=== PATIENT | female | born 1960 | race Caucasian/White ===

== ENCOUNTER 2016-09-30 08:32 | Emergency (ER) | payer OTHER ==
[~2016-09-30] VITALS: Ht 170.2 cm; Wt 85.0 kg
[~2016-09-30 08:32] MED LIST: BIOT5000 PO; GABA100C4 PO; MULT1TAB46; PROBCAP4 PO; TRAM100T19 PO
[2016-09-30 08:35] VITALS: BP 158/80; PULSE 63; RESP 15; TEMP 98; O2SAT 99
--- NOTE | 2016-09-30 09:10 | PD ---
HPI Chief Complaint: Complaint Time Seen by Provider: 08:39 Travel History International Travel<30 days: No Contact w/Intl Traveler<30days: No Traveled to known affect area: No History of Present Illness HPI The patient is a 55-year-old female who presents emergency department for pelvic pain. The patient has a history of bladder prolapse with previous surgery by her manager video, Dr. Mendoza. The patient states she was seen by Dr. Mendoza a months ago and advised she may need further surgical intervention for return of her bladder prolapse. However, the patient did not want any surgical intervention at that time. The patient notes her last several days she 's had some sharp, intermittent episodes of pelvic pain located lower aspect of her abdomen, which she attributed to bladder prolapse. She denies any dysuria, frequency, urgency, or hematuria. The pain is sharp, occasionally worse with standing upright, and occasionally alleviated with sitting. The patient has a previous history of appendectomy and hysterectomy for her bladder prolapse. The patient denies any vaginal discharge or bleeding. The patient denies any nausea, vomiting, diarrhea, or change in bowel habits. Symptoms are moderate, occasionally exacerbated by standing upright and alleviated with sitting. PFSH Past Medical History Heart Rhythm Problems: Yes (PALPITATIONS- HAS SEEN DR. SOLO) Cancer: No Cardiovascular Problems: No Diabetes: No Diminished Hearing: No Endocrine: No Genitourinary: No Hepatitis: No Hiatal Hernia: No Immune Disorder: No Musculoskeletal: Yes (ARTHRITIS L KNEE AND R HIP WITH FALL IN SEPTEMBER 2014) Neurologic: No Psychiatric: Yes (CLAUSTROPHOBIC) Reproductive: No Respiratory: No Immunizations Current: Yes Pneumonia: Yes Thyroid Disease: No Menopausal: Yes : 13 Para: 3 Miscarriage: 10 Dilation and Curettage (D&C): Yes (X 14) Past Surgical History Abdominal Surgery: Yes (HYSTEROSCOPY,LAPAROSCOPY, APPY) AICD: No Appendectomy: Yes Section: Yes Gynecologic Surgery: Yes (HYSTEROCOPY, LAPAROSCOPY, UTERINE ABLATION AUG 2011, MULT D AND C) Hysterectomy: Yes Joint Replacement: No Oral Surgery: Yes (T+A) Pacemaker: No Tonsillectomy: Yes (w-adenoidectomy) Other Surgery: Yes (D&C X 12.) Social History Alcohol Use: Yes (OccasionaL) Tobacco Use: No Substance Use: No Allergies-Medications (Allergen,Severity, Reaction): Coded Allergies: Bee Sting (Unverified Allergy, Severe, Anaphylaxis, 03/05/15) Wasp (Unverified Allergy, Severe, Anaphylaxis, 03/05/15) Reported Meds & Prescriptions Reported Meds & Active Scripts Active Review of Systems Except as stated in HPI: all other systems reviewed are Neg General / Constitutional: No: Fever Cardiovascular: No: Chest Pain or Discomfort Respiratory: No: Shortness of Breath Gastrointestinal: Positive: Abdominal Pain, No: Nausea, Vomiting, Diarrhea Genitourinary: Positive: Pelvic Pain, Other, No: Urgency, Frequency, Dysuria Physical Exam Narrative GENERAL: Awake, alert, pleasant 55-year-old female who appears her stated age and is in no acute respiratory distress. SKIN: Warm and dry. HEAD: Atraumatic. Normocephalic. EYES: No injection or drainage. ENT: No nasal bleeding or discharge. Mucous membranes pink and moist. NECK: Trachea midline. No JVD. GASTROINTESTINAL: Abdomen soft, non-tender, nondistended. Minimal tenderness suprapubic and right lower quadrant. Pelvic: The exam was performed in the presence of a female nurse. External examination reveals no obvious prolapse, inspection of the introitus reveals small prolapse within the vaginal vault. MUSCULOSKELETAL: No obvious deformities. No clubbing. No cyanosis. No edema. NEUROLOGICAL: Awake and alert. No obvious cranial nerve deficits. Motor grossly within normal limits. Normal speech. PSYCHIATRIC: Appropriate mood and affect; insight and judgment normal. Data Data Last Documented VS Vital Signs Date Time Temp Pulse Resp B/P Pulse Ox O2 Delivery O2 Flow Rate FiO2 09/30/16 09:15 18 98 Room Air 09/30/16 09:15 78 09/30/16 08:35 98.0 158/80 Orders Complete Blood Count With Diff (09/30/16 09:03) Comprehensive Metabolic Panel (09/30/16 09:03) Lipase (09/30/16 09:03) Urinalysis - C+S If Indicated (09/30/16 09:03) Ct Abd/Pel W/O Iv Contrast (09/30/16 09:03) Iv Access Insert/Monitor (09/30/16 09:03) Ecg Monitoring (09/30/16 09:03) Oximetry (09/30/16 09:03) Sodium Chloride 0.9% Flush (Ns Flush) (09/30/16 09:15) Ketorolac Inj (Toradol Inj) (09/30/16 09:15) Labs Laboratory Tests Test 09/30/16 09/30/16 09:04 09:08 White Blood Count 5.1 TH/MM3 Red Blood Count 4.56 MIL/MM3 Hemoglobin 13.8 GM/DL Hematocrit 40.3 % Mean Corpuscular Volume 88.4 FL Mean Corpuscular Hemoglobin 30.2 PG Mean Corpuscular Hemoglobin 34.2 % Concent Red Cell Distribution Width 13.7 % Platelet Count 218 TH/MM3 Mean Platelet Volume 7.7 FL Neutrophils (%) (Auto) 56.9 % Lymphocytes (%) (Auto) 32.5 % Monocytes (%) (Auto) 6.4 % Eosinophils (%) (Auto) 3.2 % Basophils (%) (Auto) 1.0 % Neutrophils # (Auto) 2.9 TH/MM3 Lymphocytes # (Auto) 1.7 TH/MM3 Monocytes # (Auto) 0.3 TH/MM3 Eosinophils # (Auto) 0.2 TH/MM3 Basophils # (Auto) 0.0 TH/MM3 CBC Comment DIFF FINAL Differential Comment Sodium Level 141 MEQ/L Potassium Level 4.3 MEQ/L Chloride Level 105 MEQ/L Carbon Dioxide Level 29.8 MEQ/L Anion Gap 6 MEQ/L Blood Urea Nitrogen 17 MG/DL Creatinine 0.80 MG/DL Estimat Glomerular Filtration 75 ML/MIN Rate Random Glucose 90 MG/DL Calcium Level 8.8 MG/DL Total Bilirubin 0.7 MG/DL Aspartate Amino Transf 17 U/L (AST/SGOT) Alanine Aminotransferase 27 U/L (ALT/SGPT) Alkaline Phosphatase 59 U/L Total Protein 7.7 GM/DL Albumin 4.2 GM/DL Lipase 364 U/L Urine Color LIGHT-YELLOW Urine Turbidity CLEAR Urine pH 6.5 Urine Specific [place] 1.005 Urine Protein NEG mg/dL Urine Glucose (UA) NEG mg/dL Urine Ketones NEG mg/dL Urine Occult Blood NEG Urine Nitrite NEG Urine Bilirubin NEG Urine Urobilinogen LESS THAN 2.0 MG/DL Urine Leukocyte Esterase NEG Urine RBC LESS THAN 1 /hpf Urine Squamous Epithelial <1 /hpf Cells Microscopic Urinalysis Comment CULT NOT INDICATED MDM Medical Decision Making Medical Screen Exam Complete: Yes Emergency Medical Condition: Yes Interpretation(s) Laboratory Tests Test 09/30/16 09/30/16 09:04 09:08 White Blood Count 5.1 TH/MM3 Red Blood Count 4.56 MIL/MM3 Hemoglobin 13.8 GM/DL Hematocrit 40.3 % Mean Corpuscular Volume 88.4 FL Mean Corpuscular Hemoglobin 30.2 PG Mean Corpuscular Hemoglobin 34.2 % Concent Red Cell Distribution Width 13.7 % Platelet Count 218 TH/MM3 Mean Platelet Volume 7.7 FL Neutrophils (%) (Auto) 56.9 % Lymphocytes (%) (Auto) 32.5 % Monocytes (%) (Auto) 6.4 % Eosinophils (%) (Auto) 3.2 % Basophils (%) (Auto) 1.0 % Neutrophils # (Auto) 2.9 TH/MM3 Lymphocytes # (Auto) 1.7 TH/MM3 Monocytes # (Auto) 0.3 TH/MM3 Eosinophils # (Auto) 0.2 TH/MM3 Basophils # (Auto) 0.0 TH/MM3 CBC Comment DIFF FINAL Differential Comment Sodium Level 141 MEQ/L Potassium Level 4.3 MEQ/L Chloride Level 105 MEQ/L Carbon Dioxide Level 29.8 MEQ/L Anion Gap 6 MEQ/L Blood Urea Nitrogen 17 MG/DL Creatinine 0.80 MG/DL Estimat Glomerular Filtration 75 ML/MIN Rate Random Glucose 90 MG/DL Calcium Level 8.8 MG/DL Total Bilirubin 0.7 MG/DL Aspartate Amino Transf 17 U/L (AST/SGOT) Alanine Aminotransferase 27 U/L (ALT/SGPT) Alkaline Phosphatase 59 U/L Total Protein 7.7 GM/DL Albumin 4.2 GM/DL Lipase 364 U/L Urine Color LIGHT-YELLOW Urine Turbidity CLEAR Urine pH 6.5 Urine Specific [place] 1.005 Urine Protein NEG mg/dL Urine Glucose (UA) NEG mg/dL Urine Ketones NEG mg/dL Urine Occult Blood NEG Urine Nitrite NEG Urine Bilirubin NEG Urine Urobilinogen LESS THAN 2.0 MG/DL Urine Leukocyte Esterase NEG Urine RBC LESS THAN 1 /hpf Urine Squamous Epithelial <1 /hpf Cells Microscopic Urinalysis Comment CULT NOT INDICATED Differential Diagnosis Differential diagnosis includes bladder prolapse, diverticulitis, appendicitis, nephrolithiasis, UTI, cystitis, vaginitis. Narrative Course IV was established, labs are drawn and sent, and the patient was placed on cardiac telemetry monitoring and continuous pulse oximetry monitoring. The patient was administered Toradol 30 mg intravenously. UA was sent to lab. CT the abdomen and pelvis was ordered to rule out nephrolithiasis and diverticulitis. UA is negative for infection. CBC and CMP are unremarkable. CT of the abdomen and pelvis is unremarkable, no evidence of nephrolithiasis or diverticulitis. The patient does complain of "pressure and pulling "with certain activities that may be related to her bladder prolapse. The patient is advised to follow-up with her gynecologic surgery. I will prescribe pain medication as needed. Diagnosis Primary Impression: Abdominal pain Qualified Code: R10.30 - Lower abdominal pain Additional Impression: Female bladder prolapse Patient Instructions: General Instructions Additional Instructions: Please provide the patient a copy of her labs and CT at discharge. Follow-up with your gynecologic surgeon, Dr. Mendoza. Pain medications as directed. No driving or drinking on pain medications. Return if symptoms worsen or progress. Scripts Hydrocodone-Acetaminophen (Loving)5-325 mg Tab1 Tab PO Q6H PRN (PAIN) #15 TAB Ref 0 Prov:Bam Gibbs MD 09/30/16 Ibuprofen 600 Mg Tgt320 Mg PO Q6H PRN (Pain/Inflammation) #20 TAB Ref 0 Prov:Bam Gibbs MD 09/30/16 Condition: Stable Bam Gibbs MD Sep 30, 2016 09:09
[2016-09-30 09:15] VITALS: RESP 18; O2SAT 98
[2016-09-30] MEDS ORDERED: SODIUM CHLORIDE 0.9% FLUSH 5 ML FLUSH IVF PRN (09:15)
[2016-09-30] MEDS ORDERED: KETOROLAC TROMETHAMINE 30 MG/ML (IVP) VIAL IVP ONE (09:15)
[2016-09-30 09:23] LABS: AUTOMATED NEUTROPHIL # 2.9 TH/MM3 (1.8-7.7); EOSINOPHIL # 0.2 TH/MM3 (0-0.4); EOSINOPHIL % 3.2 % (0.0-4.0); HEMATOCRIT 40.3 % (35.0-46.0); HEMO FLAGS DIFF FINAL; LYMPH % 32.5 % (9.0-44.0); LYMPHOCYTE # 1.7 TH/MM3 (1.0-4.8); MEAN CELL VOLUME 88.4 FL (80.0-100.0); MEAN CORPUSCULAR HEMOGLOBIN 30.2 PG (27.0-34.0); MEAN CORPUSCULAR HGB CONC 34.2 % (32.0-36.0); MONO % 6.4 % (0.0-8.0); NEUT % 56.9 % (16.0-70.0); PLATELET COUNT 218 TH/MM3 (150-450); RED BLOOD COUNT 4.56 MIL/MM3 (4.00-5.30); RED CELL DISTRIBUTION WIDTH 13.7 % (11.6-17.2); WHITE BLOOD COUNT 5.1 TH/MM3 (4.0-11.0)
[2016-09-30 09:32] LABS: BLOOD, URINE NEG (NEG); GLUCOSE,URINE NEG (NEG); KETONE, URINE NEG (NEG); NITRITE,URINE NEG (NEG); PH, URINE 6.5 (5.0-8.5); SQUAMOUS EPITHELIAL CELL URINE <1 /hpf (0-5); URINE COLOR LIGHT-YELLOW (YELLW/STRAW)
[2016-09-30 09:35] LABS: COMMENT (UR) CULT NOT INDICATED; CULTURE IF INDICATED CULT NOT INDICATED
[2016-09-30 09:39] LABS: ANION GAP 6 MEQ/L (5-15); AST (GOT) 17 U/L (15-37); BICARBONATE 29.8 MEQ/L (21.0-32.0); BLOOD UREA NITROGEN 17 MG/DL (7-18); CHLORIDE 105 MEQ/L (98-107); GLOMERULAR FILTRATION RATE 75 ML/MIN (>89); POTASSIUM 4.3 MEQ/L (3.5-5.1); SODIUM (NA) 141 MEQ/L (136-145)
[2016-09-30 09:42] LABS: ALKALINE PHOSPHATASE 59 U/L (45-117); ALT (GPT) 27 U/L (10-53); TOTAL BILIRUBIN ADULT 0.7 MG/DL (0.2-1.0)
--- NOTE | 2016-09-30 10:12 | RADRPT ---
EXAM DATE/TIME: 09/30/2016 09:23 [facility] COMPARISON: CT ABDOMEN & PELVIS W/O CONTRAST, August 09, 2014, 11:31. INDICATIONS : Lower pelvic pain for several weeks ORAL CONTRAST: No oral contrast ingested. RADIATION DOSE: 15.02 CTDIvol (mGy) MEDICAL HISTORY : Cardiovascular disease. SURGICAL HISTORY : Hysterectomy. Appendectomy. section.bladder prolapse repair ENCOUNTER: Initial ACUITY: 2 weeks PAIN SCALE: 5/10 LOCATION: lower quadrant TECHNIQUE: Volumetric scanning of the abdomen and pelvis was performed. Using automated exposure control and ad justment of the mA and/or kV according to patient size, radiation dose was kept as low as reasonably achievable to obtain optimal diagnostic quality images. FINDINGS: LOWER LUNGS: The visualized lower lungs are clear. LIVER: Homogeneous density without lesion. There is no dilation of the biliary tree. No calcified gallston es. SPLEEN: Normal size without lesion. PANCREAS: Within normal limits. KIDNEYS: Normal in size and shape. There is no mass, stone, or hydronephrosis. ADRENAL GLANDS: Within normal limits. VASCULAR: There is no aortic aneurysm. There is mild atherosclerotic disease. BOWEL/MESENTERY: The stomach, small bowel, and colon demonstrate no acute abnormality. There is no free intraperitone al air or fluid. ABDOMINAL WALL: Within normal limits. RETROPERITONEUM: There is no lymphadenopathy. BLADDER: No wall thickening or mass. REPRODUCTIVE: The uterus is absent. INGUINAL: There is no lymphadenopathy or hernia. MUSCULOSKELETAL: There are degenerative changes of the lumbar spine. CONCLUSION: 1. No acute finding is identified within the abdomen or pelvis. 2. Mild atherosclerotic disease. Be Pollack MD on September 30, 2016 at 9:58 Board Certified Radiologist. This report was verified electronically.
[2016-09-30] MEDS ORDERED: IBUP-232 PO (10:53)
[2016-09-30] MEDS ORDERED: NORC5TAB PO (10:53)
[2016-09-30 11:17] VITALS: BP 143/78; TEMP 98.3
== END 2016-09-30 11:10 | disposition home or self-care (01) ==
LOC: NEPE 08:32
DX: N81.10 Cystocele, unspecified (principal); R10.30 Lower abdominal pain, unspecified; R10.2 Pelvic and perineal pain; Z87.448 Personal history of other diseases of urinary system; Z86.79 Personal history of other diseases of the circulatory system; Z87.39 Personal history of other diseases of the musculoskeletal system and connective tissue; Z86.59 Personal history of other mental and behavioral disorders; Z87.01 Personal history of pneumonia (recurrent)
CPT/HCPCS: 74176; 80053; 81001; 83690; 85025; 96374; 99284; J1885

== ENCOUNTER 2017-10-21 06:02 | Emergency (ER) | payer OTHER ==
[~2017-10-21] VITALS: Ht 167.6 cm; Wt 97.1 kg
[~2017-10-21 06:02] MED LIST changes: -BIOT5000 PO; -GABA100C4 PO; +IBUP-232 PO; -MULT1TAB46; +NORC5TAB PO; -PROBCAP4 PO; -TRAM100T19 PO
[2017-10-21 06:08] VITALS: BP 133/71; PULSE 65; RESP 18; TEMP 98.3; O2SAT 97
[2017-10-21] MEDS ORDERED: PRENTAB7 PO (06:13)
[2017-10-21] MEDS ORDERED: AMLO5TAB2 PO (06:13)
[2017-10-21] MEDS ORDERED: MELO15TA20 PO (06:13)
[2017-10-21] MEDS ORDERED: KETOROLAC TROMETHAMINE 30 MG/ML (IVP) VIAL IV PUSH ONE (06:30)
[2017-10-21] MEDS ORDERED: SODIUM CHLOR 0.9% 1000 ML INJ 1,000 ML IV ONE (06:30)
[2017-10-21] MEDS ORDERED: ROBA750T PO (06:34)
--- NOTE | 2017-10-21 06:34 | PD ---
HPI Chief Complaint: Musculoskeletal Complaint Time Seen by Provider: 06:26 Travel History International Travel<30 days: No Contact w/Intl Traveler<30days: No Traveled to known affect area: No History of Present Illness HPI 56-year-old female presents to the emergency department by private transportation in the care of her spouse for evaluation of recurrent bilateral lower extremity muscle cramps and charley horse symptoms. Patient states that for greater than 13 years she has had nighttime charley horse and muscle cramps symptoms affecting both legs. Patient states last evening was most worrisome and most symptomatic. Patient has been seen by her primary care provider numerous times for same complaint and told to take potassium and magnesium supplements she is also been referred to her aircraft inspection record clerk who could not find any evidence of peripheral vascular disease or etiology to explain her lower extremity symptoms. Patient does take lisinopril for high blood pressure and meloxicam for arthritis but does not take any statin medications. Patient denies any recent long distance travel protracted bedrest or surgical procedure. Patient denies any personal history or known family history of clotting disorder. Patient denies chest pain pleuritic chest pain shortness of breath or hemoptysis. Patient's had no injury or fall. Patient rates current discomfort is minor but states throughout the night she has had intermittent severe lower extremity cramping. Patient denies any bladder or bowel dysfunction. Patient denies any saddle anesthesia. Patient states that times pain emanates from her lower back into the buttock and feels as if she has a constant pressure on the buttock and into the lower extremities. Symptoms primarily extending from the buttock to the knees bilaterally with lesser extent calf cramping. No lower extremity swelling erythema pain and no pallor or coolness of the extremities. No report of claudication. 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 Patient does repetitive lifting and carrying of various weight objects but has not had any specific injury or specific low back pain precipitating cramps and patient reports cramps primarily occur at bedtime. PFSH Past Medical History Narrative Medical Hypertension arthritis leg cramps palpitations claustrophobia D&C hysteroscopy hysterectomy appendectomy; occasional alcohol use; nursing notes reviewed Medical History: Denies Significant Hx Heart Rhythm Problems: Yes (PALPITATIONS- HAS SEEN DR. SOLO) Cancer: No Cardiovascular Problems: No Diabetes: No Diminished Hearing: No Endocrine: No Gastrointestinal Disorders: No Genitourinary: No Hepatitis: No Hiatal Hernia: No Hypertension: No Immune Disorder: No Musculoskeletal: Yes (ARTHRITIS L KNEE AND R HIP WITH FALL IN SEPTEMBER 2014) Neurologic: No Psychiatric: Yes (CLAUSTROPHOBIC) Reproductive: No Respiratory: No Immunizations Current: Yes Pneumonia: Yes Thyroid Disease: No ?: Not Menopausal: Yes : 13 Para: 3 Miscarriage: 10 Dilation and Curettage (D&C): Yes (X 14) Past Surgical History Abdominal Surgery: Yes (HYSTEROSCOPY,LAPAROSCOPY, APPY) AICD: No Appendectomy: Yes Section: Yes Gynecologic Surgery: Yes (HYSTEROCOPY, LAPAROSCOPY, UTERINE ABLATION AUG 2011, MULT D AND C) Hysterectomy: Yes Joint Replacement: No Oral Surgery: Yes (T+A) Pacemaker: No Tonsillectomy: Yes (w-adenoidectomy) Other Surgery: Yes (D&C X 12.) Social History Alcohol Use: Yes (OccasionaL) Tobacco Use: No Substance Use: No Allergies-Medications (Allergen,Severity, Reaction): Coded Allergies: bee venom protein (honey bee) (Unverified Allergy, Severe, Anaphylaxis, ) hornet venom (Unverified Allergy, Severe, Anaphylaxis, 10/21/17) Reported Meds & Prescriptions Reported Meds & Active Scripts Active Robaxin (Methocarbamol) 750 Mg Tab 750 Mg PO Q6HR Reported Vitamins Tablet (Pnv No.95/Ferrous Fum/Folic AC) 28 Mg Iron-800 Mcg Tablet 1 Tab PO DAILY Amlodipine (Amlodipine Besylate) 5 Mg Tab 5 Mg PO DAILY Meloxicam 15 Mg Tab 15 Mg PO DAILY Review of Systems Except as stated in HPI: all other systems reviewed are Neg General / Constitutional: No: Fever Eyes: No: Visual changes HENT: No: Headaches, Neck Pain Cardiovascular: No: Chest Pain or Discomfort Respiratory: No: Shortness of Breath, Pleuritic Pain Gastrointestinal: No: Nausea, Vomiting, Abdominal Pain Genitourinary: No: Flank Pain Musculoskeletal: Positive: Myalgias, Arthralgias, Cramping, No: Pain Skin: No Rash Neurologic: No: Weakness, Paresthesia Psychiatric: Positive: Anxiety Hematologic/Lymphatic: No: Lymph Node Enlargement Physical Exam Narrative GENERAL: Well-developed well-nourished female no acute distress or respiratory distress SKIN: Warm and dry. HEAD: Normocephalic. EYES: No scleral icterus. No injection or drainage. NECK: Supple, trachea midline. No JVD or lymphadenopathy. CARDIOVASCULAR: Regular rate and rhythm without murmurs, gallops, or rubs. RESPIRATORY: Breath sounds equal bilaterally. No accessory muscle use. GASTROINTESTINAL: Abdomen soft, non-tender, nondistended. MUSCULOSKELETAL: No cyanosis, or edema. Negative Homans sign negative According dorsalis pedis pulse 2+ to palpation bilaterally capillary refill brisk at less than 2 seconds per digit. BACK: Nontender without obvious deformity. Negative straight leg raising. No CVA tenderness. Data Data Last Documented VS Vital Signs Date Time Temp Pulse Resp B/P (MAP) Pulse Ox O2 Delivery O2 Flow Rate FiO2 10/21/17 06:16 20 10/21/17 06:08 98.3 65 133/71 (91) 97 Orders Orders Complete Blood Count With Diff (10/21/17 06:26) Basic Metabolic Panel (Bmp) (10/21/17 06:26) Magnesium (Mg) (10/21/17 06:26) Creatine Kinase (Cpk) (10/21/17 06:26) Urinalysis - C+S If Indicated (10/21/17 06:26) Ketorolac Inj (Toradol Inj) (10/21/17 06:30) Sodium Chlor 0.9% 1000 Ml Inj (Ns 1000 M (10/21/17 06:30) Labs Laboratory Tests Test 10/21/17 06:35 White Blood Count 3.6 TH/MM3 Red Blood Count 4.29 MIL/MM3 Hemoglobin 12.9 GM/DL Hematocrit 37.3 % Mean Corpuscular Volume 87.0 FL Mean Corpuscular Hemoglobin 30.1 PG Mean Corpuscular Hemoglobin Concent 34.6 % Red Cell Distribution Width 13.4 % Platelet Count 200 TH/MM3 Mean Platelet Volume 7.5 FL Neutrophils (%) (Auto) 53.0 % Lymphocytes (%) (Auto) 33.5 % Monocytes (%) (Auto) 7.3 % Eosinophils (%) (Auto) 5.2 % Basophils (%) (Auto) 1.0 % Neutrophils # (Auto) 1.9 TH/MM3 Lymphocytes # (Auto) 1.2 TH/MM3 Monocytes # (Auto) 0.3 TH/MM3 Eosinophils # (Auto) 0.2 TH/MM3 Basophils # (Auto) 0.0 TH/MM3 CBC Comment DIFF FINAL Differential Comment MDM Medical Decision Making Medical Screen Exam Complete: Yes Emergency Medical Condition: Yes Medical Record Reviewed: Yes Differential Diagnosis Electrolyte disturbance, dehydration, leg cramp, sciatica, lumbar radiculopathy , RLS, thyroid dysfunction Narrative Course IV access obtained specimens collected and sent for resulting; patient administered Toradol 1 dose @ 0700 care signed over to oncsammie STAFFORD for follow-up of pending labs and patient disposition Diagnosis Primary Impression: Nocturnal leg cramps Referrals: Primary Care Physician call for appointment Patient Instructions: General Instructions Additional Instructions: Follow-up with your primary care provider Continue to add potassium and magnesium-containing foods and beverages to dietary intake May use muscle relaxant as prescribed as needed Increase fluid hydration Med/Other Pt SpecificInfo: Prescription(s) given Scripts Methocarbamol (Robaxin) 750 Mg Tab 750 MG PO Q6HR for Muscle Spasm, #12 TAB 0 Refills Prov: Annika Rosenberg MD 10/21/17 Disposition: 01 DISCHARGE HOME Condition: Stable Annika Rosenberg MD Oct 21, 2017 06:34
[2017-10-21 06:47] LABS: AUTOMATED NEUTROPHIL # 1.9 TH/MM3 (1.8-7.7); EOSINOPHIL # 0.2 TH/MM3 (0-0.4); EOSINOPHIL % 5.2 % (0.0-4.0); HEMATOCRIT 37.3 % (35.0-46.0); HEMOGLOBIN 12.9 GM/DL (11.6-15.3); LYMPH % 33.5 % (9.0-44.0); LYMPHOCYTE # 1.2 TH/MM3 (1.0-4.8); MEAN CORPUSCULAR HEMOGLOBIN 30.1 PG (27.0-34.0); MEAN CORPUSCULAR HGB CONC 34.6 % (32.0-36.0); MEAN PLATELET VOLUME 7.5 FL (7.0-11.0); MONO % 7.3 % (0.0-8.0); MONOCYTE # 0.3 TH/MM3 (0-0.9); PLATELET COUNT 200 TH/MM3 (150-450); RED BLOOD COUNT 4.29 MIL/MM3 (4.00-5.30); RED CELL DISTRIBUTION WIDTH 13.4 % (11.6-17.2); WHITE BLOOD COUNT 3.6 TH/MM3 (4.0-11.0)
[2017-10-21 07:14] LABS: BICARBONATE 28.1 MEQ/L (21.0-32.0); MAGNESIUM 2.2 MG/DL (1.5-2.5)
[2017-10-21 07:17] LABS: CREATININE 0.62 MG/DL (0.50-1.00)
[2017-10-21 07:29] LABS: BILIRUBIN, URINE NEG (NEG); GLUCOSE,URINE NEG (NEG); KETONE, URINE NEG (NEG); NITRITE,URINE NEG (NEG); PH, URINE 7.5 (5.0-8.5); URINE LEUKOCYTE ESTERASE TRACE (NEG)
[2017-10-21 07:32] LABS: BLOOD, URINE TRACE (NEG)
[2017-10-21 07:34] LABS: URINE COLOR YELLOW (YELLW/STRAW)
[2017-10-21 07:37] LABS: BACTERIA, URINE RARE /hpf; RBC, URINE 0-3 /hpf (0-3); SQUAMOUS EPITHELIAL CELL URINE 0-5 /hpf (0-5); WBC, URINE 0-2 /hpf (0-5)
--- NOTE | 2017-10-21 07:48 | PD ---
Data Data Last Documented VS Vital Signs Date Time Temp Pulse Resp B/P (MAP) Pulse Ox O2 Delivery O2 Flow Rate FiO2 10/21/17 06:16 20 10/21/17 06:08 98.3 65 133/71 (91) 97 Orders Orders Complete Blood Count With Diff (10/21/17 06:26) Basic Metabolic Panel (Bmp) (10/21/17 06:26) Magnesium (Mg) (10/21/17 06:26) Creatine Kinase (Cpk) (10/21/17 06:26) Urinalysis - C+S If Indicated (10/21/17 06:26) Ketorolac Inj (Toradol Inj) (10/21/17 06:30) Sodium Chlor 0.9% 1000 Ml Inj (Ns 1000 M (10/21/17 06:30) CKMB (10/21/17 06:35) CKMB% (10/21/17 06:35) Ed Discharge Order (10/21/17 07:46) Labs Laboratory Tests Test 10/21/17 06:35 10/21/17 07:25 White Blood Count 3.6 TH/MM3 Red Blood Count 4.29 MIL/MM3 Hemoglobin 12.9 GM/DL Hematocrit 37.3 % Mean Corpuscular Volume 87.0 FL Mean Corpuscular Hemoglobin 30.1 PG Mean Corpuscular Hemoglobin Concent 34.6 % Red Cell Distribution Width 13.4 % Platelet Count 200 TH/MM3 Mean Platelet Volume 7.5 FL Neutrophils (%) (Auto) 53.0 % Lymphocytes (%) (Auto) 33.5 % Monocytes (%) (Auto) 7.3 % Eosinophils (%) (Auto) 5.2 % Basophils (%) (Auto) 1.0 % Neutrophils # (Auto) 1.9 TH/MM3 Lymphocytes # (Auto) 1.2 TH/MM3 Monocytes # (Auto) 0.3 TH/MM3 Eosinophils # (Auto) 0.2 TH/MM3 Basophils # (Auto) 0.0 TH/MM3 CBC Comment DIFF FINAL Differential Comment Blood Urea Nitrogen 18 MG/DL Creatinine 0.62 MG/DL Random Glucose 93 MG/DL Calcium Level 9.0 MG/DL Magnesium Level 2.2 MG/DL Sodium Level 140 MEQ/L Potassium Level 4.1 MEQ/L Chloride Level 107 MEQ/L Carbon Dioxide Level 28.1 MEQ/L Anion Gap 5 MEQ/L Estimat Glomerular Filtration Rate 100 ML/MIN Total Creatine Kinase 229 U/L Creatine Kinase MB 4.3 NG/ML Creatine Kinase MB % 1.9 % Urine Collection Type CLEAN CATCH Urine Color YELLOW Urine Turbidity CLEAR Urine pH 7.5 Urine Specific [place] 1.012 Urine Protein NEG mg/dL Urine Glucose (UA) NEG mg/dL Urine Ketones NEG mg/dL Urine Occult Blood TRACE Urine Nitrite NEG Urine Bilirubin NEG Urine Leukocyte Esterase TRACE Urine RBC 0-3 /hpf Urine WBC 0-2 /hpf Urine Squamous Epithelial Cells 0-5 /hpf Urine Bacteria RARE /hpf Microscopic Urinalysis Comment CULT NOT INDICATED MDM Medical Record Reviewed: Yes Supervised Visit with MIGUEL A: No Narrative Course CBC & BMP Diagram 10/21/17 06:35 Calcium Level 9.0, Magnesium Level 2.2 Some time was spent discussing treatment options for the patient including lifestyle modification, exercises, stretching techniques in addition to others. The total creatinine kinase was about 220 which fortunately is not consistent with a concerning disease process. Diagnosis Primary Impression: Nocturnal leg cramps Referrals: Primary Care Physician call for appointment Patient Instructions: General Instructions, Leg Cramps (ED) Departure Forms: Tests/Procedures Additional Instruction: Follow-up with your primary care provider Continue to add potassium and magnesium-containing foods and beverages to dietary intake May use muscle relaxant as prescribed as needed Increase fluid hydration Scripts Methocarbamol (Robaxin) 750 Mg Tab 750 MG PO Q6HR for Muscle Spasm, #12 TAB 0 Refills Prov: Annika Rosenberg MD 10/21/17 Disposition: 01 DISCHARGE HOME Condition: Stable Sergio Puente MD Oct 21, 2017 07:48
[2017-10-21 07:50] VITALS: BP 136/77; PULSE 74; RESP 14; O2SAT 97
== END 2017-10-21 08:00 | disposition home or self-care (01) ==
LOC: PHED 06:02
DX: G47.62 Sleep related leg cramps (principal)
CPT/HCPCS: 80048; 81001; 82550; 82552; 83735; 85025; 96361; 96374; 99284; J1885; J7030